=== PATIENT | female | born 1945 | race Caucasian/White ===

== ENCOUNTER → 2016-06-23 | Outpatient (CLI) | payer OTHER | LOC: FIMAGING 16:02 | PROVIDERS: ATTEND Family Medicine | DX: M54.2 Cervicalgia (principal); M50.30 Other cervical disc degeneration, unspecified cervical region ==

== ENCOUNTER → 2016-09-22 | Outpatient (CLI) | payer OTHER | LOC: FIMAGING 10:45 | PROVIDERS: ATTEND Internal Medicine | DX: Z12.31 Encounter for screening mammogram for malignant neoplasm of breast (principal) | CPT/HCPCS: G0202 ==

== ENCOUNTER → 2016-10-03 | Outpatient (CLI) | payer OTHER | LOC: FIMAGING 14:10 | PROVIDERS: ATTEND Internal Medicine | DX: R92.0 Mammographic microcalcification found on diagnostic imaging of breast (principal) | CPT/HCPCS: G0206 ==

== ENCOUNTER → 2017-03-25 | Outpatient (CLI) | payer OTHER | LOC: FIMAGING 14:08 | PROVIDERS: ATTEND Internal Medicine | DX: R92.8 Other abnormal and inconclusive findings on diagnostic imaging of breast (principal) | CPT/HCPCS: G0206 ==

== ENCOUNTER → 2017-09-14 | Outpatient (CLI) | payer OTHER | LOC: FIMAGING 10:43 | PROVIDERS: ATTEND Internal Medicine | DX: Z09 Encounter for follow-up examination after completed treatment for conditions other than malignant neoplasm (principal); R92.0 Mammographic microcalcification found on diagnostic imaging of breast ==

== ENCOUNTER → 2018-08-04 | Outpatient (CLI) | payer OTHER | LOC: CIMAGING 08:55 | PROVIDERS: ATTEND Internal Medicine | DX: N85.8 Other specified noninflammatory disorders of uterus (principal); I87.8 Other specified disorders of veins | CPT/HCPCS: 76856-PO ==

== ENCOUNTER 2018-08-06 09:44 | Emergency (ER) | payer OTHER ==
--- NOTE | 2018-08-06 09:55 | EDPHY ---
General Time Seen by Provider: 08/06/18 09:55 Narrative: CLINICAL IMPRESSION: Right-sided abdominal pain ASSESSMENT/PLAN: Patient is a 73-year-old very healthy female with no significant medical history who presents to the emergency department with right-sided abdominal pain that has been escalating over the last 10 days. Patient is afebrile, she is in no acute distress and not toxic-appearing. Her abdomen was soft, nondistended, tenderness in the suprapubic and generalized right abdomen without peritoneal signs. Laboratory studies were very reassuring with no significant abnormality. UA with no evidence of infection, no evidence of UTI or pyelonephritis. CT abdomen and pelvis with signs suggestive of constipation , no other acute findings. Patient with a very reassuring workup in the emergency department, query underlying constipation as well as musculoskeletal etiology in light of frequent yoga. No findings to suggest diverticulitis, appendicitis, cholecystitis, obstruction, perforation or other acute, emergent intra-abdominal process. She will trial heating pad as well as adding Tylenol to her pain regimen. She is well established with her primary care provider and will call to schedule follow-up early next week. Return precautions were discussed. DIFFERENTIAL DX: Abdominal pain including but not limited to appendicitis, cholecystitis, gastritis and urinary tract infection. ED COURSE: 1011: Case discussed with Dr. To 1203: Discussed case with radiologist Dr. Vera, patient with evidence of constipation however no other acute findings. CHIEF COMPLAINT: Right-sided abdominal pain HPI: Patient is a 73-year-old very healthy female who presents to the emergency department with escalating right-sided abdominal pain. Patient reports approximately 10 days ago she started to experience some right lower quadrant abdominal pain, was seen and evaluated by her primary care provider where she subsequently had a reportedly normal pelvic ultrasound last Thursday. Patient reports since that time her pain has been increasing in intensity and is now radiating up into right upper quadrant. She has never experienced anything like this before. She denies any fever, nausea or vomiting. Her appetite has been mildly low which she feels is secondary to being anxious about with wrong. She has had no abdominal surgeries in the past. She denies any chest pain or shortness of breath. Bowel movements have been regular daily and normal, no melena or hematochezia. Last colonoscopy was 2 years ago with benign polyps. She denies any urinary symptoms to include dysuria, hematuria or frequency. She denies any flank pain. She was taking ibuprofen at the recommendation of her primary care provider's they felt that this might be musculoskeletal in nature, she has had no improvement. She states that the pain improves with lying flat. Pain does not change with eating. She denies any pelvic pain, vaginal bleeding or vaginal discharge. PMH: Denies Pertinent Past Surgical History: Mediastinoscopy 40 years ago Family History: Not contributory Social History: Occasional wine, denies cigarette smoking or drug use. REVIEW OF SYSTEMS: All other systems negative Constitutional: Diminished appetite. No fever, no chills. Eyes: No discharge, vision change ENT: No sore throat, congestion, ear pain. Cardiovascular: No chest pain, no palpitations. Respiratory: No cough, no shortness of breath. Gastrointestinal: Abdominal pain, no vomiting, constipation or diarrhea. Genitourinary: No hematuria, dysuria, flank pain. Musculoskeletal: No back pain, joint swelling, joint pain, myalgias. Skin: No rashes, color change. Neurological: No headache, dizziness, weakness. PHYSICAL EXAM: General Appearance: Well-appearing, no acute distress and not toxic-appearing. HENT: Normocephalic, atraumatic. Bilateral external ears are normal. Bilateral tympanic membranes are normal with pearly hall reflex. Nares are clear, mucosa is pink. Oropharynx is clear, uvula is midline. There is no tonsillar enlargement or exudate. The dentition is normal. Eyes: PERRLA, no acute vision change, nystagmus, swelling, discharge, pain or photosensitivity. Conjunctiva pink, no pallor or injection. Neck: Supple, nontender, no lymphadenopathy, no midline pain, FROM. Respiratory: There are no retractions, lungs are clear to auscultation. Cardiac: Regular rate and rhythm, no murmurs or gallops. Gastrointestinal: Patient's abdomen is soft and nondistended. Patient is reproducible tenderness to palpation in the suprapubic and generalized right-sided abdomen without rebound or guarding. Negative Rovsing's. Negative Kim sign. Bowel sounds are present, no masses, hernias or abdominal incisions noted. Neurological: Alert and oriented x 3, CN 2-12 grossly intact, normal sensation and strength. Skin: Warm, dry, no rashes, no nodules on palpation. Musculoskeletal: Extremities are symmetrical, full range of motion, no tenderness, deformity, swelling, or erythema. Psychiatric: Mood and affect are normal, there is no agitation. MEDICAL DECISION MAKING: Patient was seen independently. Secondary supervising physician at time of evaluation was Dr. To. Diagnosis: Abdominal pain. Summary: Patient is a 73-year-old female with no significant medical history who presents to the emergency department with escalating right-sided abdominal pain for the last 10 days. Patient is afebrile, she is in no acute distress and not toxic-appearing. Her abdomen was soft, tenderness in the suprapubic and generalized right abdomen without peritoneal signs. CBC revealed no evidence of leukocytosis. Her vital signs were reviewed and there was no evidence of sepsis or serious bacterial illness. BMP revealed no significant metabolic abnormalities. Lipase and hepatic panel unremarkable. CT abdomen and pelvis with findings suggestive of constipation, no other acute intra-abdominal findings. On repeat examination prior to discharge her abdomen was soft with very mild tenderness to palpation in the generalized right abdomen, no peritoneal signs or evidence of a surgical abdomen. To note patient with recent pelvic ultrasound that was unremarkable however ovaries were not identified. There was no free fluid in the pelvis and there was no gas noted to suggest acute pelvic etiology. No indication for repeat pelvic ultrasound. History and physical examination is most consistent with right-sided abdominal pain. There were no clinical findings to suggest appendicitis, cholecystitis, kidney stone, pancreatitis, ACS, pyelonephritis, perforated viscus, diverticulitis, hernia, AAA, mesenteric ischemia, or additional emergent intra- abdominal process. On repeat examination the patient is very reassured by her findings, mild tenderness to palpation in the generalized right abdomen without evidence of a surgical abdomen. The patient is well established with her primary care provider and understands the importance of close follow-up. Clinical lab tests: ordered / reviewed. Independent visualization of images, tracing, or specimens: Yes. Decision to obtain medical records or history from someone other than the patient: No Review / Summarize previous medical records: Yes Discussed patient with another provider: Yes, Dr. To Patient Progress: Stable, discharge. - Diagnostics Imaging Results: Imaging Impressions Abdomen CT 08/06/18 10:06 Impression: Nothing acute. Findings and recommendations discussed with OLESYA Stack at 12:00 p.m. on August 06, 2018. Final report concurs with initial preliminary interpretation. - History Smoking Status: Never smoked - Objective Vital Signs: Initial Vital Signs Temperature (C) 36.6 C 08/06/18 09:49 Heart Rate 92 08/06/18 09:49 Respiratory Rate 18 08/06/18 09:49 Blood Pressure 158/92 H 08/06/18 09:49 O2 Sat (%) 97 08/06/18 09:49 O2 Delivery Mode Room Air Allergies/Adverse Reactions: No Known Allergies Allergy (Verified 08/06/18 09:48) Home Medications: Medication Instructions Recorded Supplements 08/06/18 Laboratory Results: Laboratory Results 08/06/18 10:10 08/06/18 10:10 08/06/18 08/06/18 08/06/18 10:22 10:10 10:10 WBC 7.17 10^3/uL 10^3/uL (3.80-9.50) RBC 4.74 10^6/uL 10^6/uL (4.18-5.33) Hgb 14.9 g/dL g/dL (12.6-16.3) POC Hgb 15.3 gm/dL gm/dL (12.6-16.3) Hct 43.9 % % (38.0-47.0) POC Hct 45 % % (38-47) MCV 92.6 fL fL (81.5-99.8) MCH 31.4 pg pg (27.9-34.1) MCHC 33.9 g/dL g/dL (32.4-36.7) RDW 12.8 % % (11.5-15.2) Plt Count 244 10^3/uL 10^3/uL (150-400) MPV 11.1 fL fL (8.7-11.7) Neut % (Auto) 72.0 % % (39.3-74.2) Lymph % (Auto) 20.6 % % (15.0-45.0) [place] % (Auto) 6.4 % % (4.5-13.0) Eos % (Auto) 0.6 % % (0.6-7.6) Baso % (Auto) 0.3 % % (0.3-1.7) Nucleat RBC Rel Count 0.0 % % (0.0-0.2) Absolute Neuts (auto) 5.16 10^3/uL 10^3/uL (1.70-6.50) Absolute Lymphs (auto) 1.48 10^3/uL 10^3/uL (1.00-3.00) Absolute Monos (auto) 0.46 10^3/uL 10^3/uL (0.30-0.80) Absolute Eos (auto) 0.04 10^3/uL 10^3/uL (0.03-0.40) Absolute Basos (auto) 0.02 10^3/uL 10^3/uL (0.02-0.10) Absolute Nucleated RBC 0.00 10^3/uL 10^3/uL (0-0.01) Immature Gran % 0.1 % % (0.0-1.1) Immature Gran # 0.01 10^3/uL 10^3/uL (0.00-0.10) POC Sodium 142 mEq/L mEq/L (135-145) Sodium 139 mEq/L mEq/L (135-145) POC Potassium 3.2 mEq/L L mEq/L (3.3-5.0) Potassium 3.5 mEq/L mEq/L (3.5-5.2) POC Chloride 104 mEq/L mEq/L (97-110) Chloride 102 mEq/L mEq/L (97-110) Carbon Dioxide 26 mEq/l mEq/l (22-31) POC Total CO2 27 mEq/L mEq/L (22-31) Anion Gap 11 mEq/L mEq/L (6-14) POC BUN 15 mg/dL mg/dL (7-23) BUN 17 mg/dL mg/dL (7-23) Creatinine 0.7 mg/dL mg/dL (0.6-1.0) POC Creatinine 0.8 mg/dL mg/dL (0.6-1.0) Estimated GFR > 60 Glucose 109 mg/dL H mg/dL (70-100) POC Glucose 113 mg/dL H mg/dL (70-100) Calcium 10.4 mg/dL mg/dL (8.5-10.4) Total Bilirubin 0.8 mg/dL mg/dL (0.1-1.4) Conjugated Bilirubin 0.2 mg/dL mg/dL (0.0-0.5) Unconjugated Bilirubin 0.6 mg/dL mg/dL (0.0-1.1) AST 32 IU/L IU/L (14-46) ALT 42 IU/L IU/L (9-52) Alkaline Phosphatase 85 IU/L IU/L (38-126) Total Protein 7.1 g/dL g/dL (6.3-8.2) Albumin 4.5 g/dL g/dL (3.5-5.0) Lipase 276 IU/L IU/L (23-300) Urine Color Urine Appearance Urine pH Ur Specific [place] Urine Protein Urine Ketones Urine Blood Urine Nitrate Urine Bilirubin Urine Urobilinogen Ur Leukocyte Esterase Urine Glucose 08/06/18 10:02 WBC RBC Hgb POC Hgb Hct POC Hct MCV MCH MCHC RDW Plt Count MPV Neut % (Auto) Lymph % (Auto) [place] % (Auto) Eos % (Auto) Baso % (Auto) Nucleat RBC Rel Count Absolute Neuts (auto) Absolute Lymphs (auto) Absolute Monos (auto) Absolute Eos (auto) Absolute Basos (auto) Absolute Nucleated RBC Immature Gran % Immature Gran # POC Sodium Sodium POC Potassium Potassium POC Chloride Chloride Carbon Dioxide POC Total CO2 Anion Gap POC BUN BUN Creatinine POC Creatinine Estimated GFR Glucose POC Glucose Calcium Total Bilirubin Conjugated Bilirubin Unconjugated Bilirubin AST ALT Alkaline Phosphatase Total Protein Albumin Lipase Urine Color YELLOW Urine Appearance HAZY Urine pH 8.0 H (5.0-7.5) Ur Specific [place] 1.013 (1.002-1.030) Urine Protein NEGATIVE (NEGATIVE) Urine Ketones TRACE H (NEGATIVE) Urine Blood NEGATIVE (NEGATIVE) Urine Nitrate NEGATIVE (NEGATIVE) Urine Bilirubin NEGATIVE (NEGATIVE) Urine Urobilinogen NEGATIVE EU EU (0.2-1.0) Ur Leukocyte Esterase NEGATIVE (NEGATIVE) Urine Glucose NEGATIVE (NEGATIVE) Medications Given: Discontinued Medications Sodium Chloride (Ns) 1,000 mls @ 0 mls/hr IV EDNOW ONE; Wide Open PRN Reason: Protocol Stop: 08/06/18 10:06 Last Admin: 08/06/18 10:36 Dose: 1,000 mls Point of Care Test Results: Chemistry 08/06/18 10:22 POC Sodium 142 mEq/L mEq/L (135-145) POC Potassium 3.2 mEq/L L mEq/L (3.3-5.0) POC Chloride 104 mEq/L mEq/L (97-110) POC Total CO2 27 mEq/L mEq/L (22-31) POC BUN 15 mg/dL mg/dL (7-23) POC Creatinine 0.8 mg/dL mg/dL (0.6-1.0) POC Glucose 113 mg/dL H mg/dL (70-100) ISTAT H&H 08/06/18 10:22 POC Hgb 15.3 gm/dL gm/dL (12.6-16.3) POC Hct 45 % % (38-47) Departure - Departure Disposition: Home, Routine, Self-Care Clinical Impression: Abdominal pain Qualifiers: Abdominal location: unspecified location Qualified Code(s): R10.9 - Unspecified abdominal pain Condition: Good Instructions: Acute Abdominal Pain (ED) Additional Instructions: DISCHARGE INSTRUCTIONS FROM YOUR PROVIDER Thank you for visiting our emergency department today. Please keep in mind that discharge from the emergency department does not mean that there is nothing wrong - it simply means that we have not identified an emergency condition that requires further evaluation or treatment in the hospital. You should always plan to follow up with primary care for re-evaluation of your condition in the next 2-3 days. Rest, push non-diuretic, non-caffeinated fluids, clear liquid diet, then a BRAT diet (bananas, rice, applesauce, toast), then slowly advance diet to normal. Attempt small frequent meals. I would add MiraLax to her daily regimen, 1 cap full daily in the drink of your choice. Add Metamucil and other high fiber contents to her diet. For pain control: You may take Tylenol, I recommend 500-1000 mg every 6-8 hours as needed. Take with food and a full glass of water. Stop taking if this is upsetting you stomach. Do not exceed 3000 mg in a 24 hr period. Return for increased or unmanageable pain, new site or character of pain, flank pain, groin pain, pelvic pain, development of fever, chills, recurrent vomiting , vomiting blood or coffee grounds, diarrhea, constipation, bloody stools, black tarry stools, burning or pain with urination, bloody urine, inability to urinate, decreased urine output or other signs of dehydration, dizziness, weakness, fainting, difficulty breathing or swallowing, chest pain, or for any other new, worsening or worrisome symptoms. People present with illnesses and injuries in different ways, and it is always possible that we have missed something. Again, thank you for choosing our emergency department. We hope that you feel better. Referrals: Janessa Hendricks MD [Primary Care Provider] - 2-3 days, call for appt.
[2018-08-06] MEDS ORDERED: NS 1,000 ML IV ONE (10:05)
[2018-08-06 10:31] LABS: PLATELET COUNT 244 10^3/uL (150-400)
[2018-08-06] MEDS ORDERED: IOPAMIDOL (ISOVUE-300) 100 ML BTL ONE (10:41)
[2018-08-06 12:25] VITALS: BP 139/70
== END 2018-08-06 13:00 | disposition home or self-care (01) ==
DX: R10.31 Right lower quadrant pain (principal)
CPT/HCPCS: 74177; 99285; Q9967; 82435-PO; 82565-PO; 82947-PO; 84132-PO; 84295-PO; 84520-PO; 85014-ER

== ENCOUNTER → 2018-09-17 | Outpatient (CLI) | payer OTHER | LOC: CIMAGING 09:59 ==

== ENCOUNTER → 2018-09-24 | Outpatient (CLI) | payer OTHER | LOC: FIMAGING 09:07 ==